=== PATIENT | female | born 1955 | race Caucasian/White ===

== ENCOUNTER 2016-10-23 06:13 | Inpatient (IN) | payer OTHER ==
[2016-10-17 12:08] VITALS: BMI 26.2
[2016-10-23] MEDS ORDERED: MIDAZOLAM HCL 2 MG/2 ML SINGLE DOSE VIAL ONE ×2 (06:48→10:57)
[2016-10-23] MEDS ORDERED: DEXAMETHASONE SOD PHOSPHATE/PF 10 MG/ML SDV ONE (06:48)
[2016-10-23] MEDS ORDERED: ROPIVACAINE HCL 0.5% 30ML VIAL ONE ×2 (06:48→07:11)
[2016-10-23] MEDS ORDERED: KETOROLAC TROMETHAMINE 60 MG/2 ML VIAL ONE (07:11)
[2016-10-23] MEDS ORDERED: morphine CARPU-JECT 10 MG/1 ML DISP.SYRIN ONE (07:11)
[2016-10-23] MEDS ORDERED: EPINEPHrine 1:1,000 1 MG/1 ML - 30ML VIAL (INJECTION) ONE (07:11)
[2016-10-23] MEDS ORDERED: TRANEXAMIC ACID 1000 MG/10 ML VIAL ONE ×3 (07:12→09:28)
[2016-10-23] MEDS ORDERED: BUPIVACAINE HCL/PF 0.5% (5MG/ML) 10 ML VIAL ONE (07:19)
[2016-10-23] MEDS ORDERED: oxyCODONE HCL 10 MG SUSTAINED ACTING TABLET ONE (07:21)
[2016-10-23] MEDS ORDERED: CELECOXIB 200 MG CAPSULE PO ONE (07:21)
[2016-10-23] MEDS ORDERED: PROPOFOL 20 ML ONE ×5 (07:27→11:08)
[2016-10-23] MEDS ORDERED: ePHEDrine SULFATE 50 MG/1 ML AMPULE ONE (07:27)
[2016-10-23] MEDS ORDERED: SUCCINYLCHOLINE CHLORIDE 200 MG/10 ML VIAL ONE (07:27)
[2016-10-23] MEDS ORDERED: PHENYLEPHRINE HCL 10 MG/1 ML SINGLE DOSE VIAL ONE (07:27)
[2016-10-23] MEDS ORDERED: ceFAZolin SODIUM 1 GM VIAL ONE ×2 (07:27→12:48)
[2016-10-23] MEDS ORDERED: LIDOCAINE HCL/PF 2% SDV 5ML VIAL ONE (07:27)
[2016-10-23] MEDS ORDERED: CEFAZOLIN 1 GM/D5W 50 ML IVPB ONE (07:38)
[2016-10-23] MEDS ORDERED: TRANEXAMIC ACID 1000 MG/10 ML VIAL IVPUSH ONE (07:38)
--- NOTE | 2016-10-23 07:43 | HP ---
History & Physical Update - History History: No Change - Physical Physical: No Change - Assessment Assessment: No Change - Plan Plan: No Change (full H&P in chart dated 10/18/2016)
[2016-10-23] MEDS ORDERED: LIDOCAINE HCL 1%, 10 MG/ML (20ML VIAL) ONE (08:21)
[2016-10-23] MEDS ORDERED: methylPREDNISolone ACET (DEPO) 40 MG/1 ML VIAL ONE (08:21)
[2016-10-23] MEDS ORDERED: ROCURONIUM BROMIDE 50 MG/5 ML VIAL ONE (11:07)
[2016-10-23] MEDS ORDERED: BUPIVACAINE HCL/EPINEPHRINE/PF 30 ML VIAL IJ ONE (11:14)
[2016-10-23] MEDS ORDERED: DESFLURANE GAS 240 ML BOTTLE IH ONE (11:22)
[2016-10-23] MEDS ORDERED: NEOSTIGMINE METHYLSULFATE 0.5 MG/ML - 10 ML MDV ONE (12:09)
--- NOTE | 2016-10-23 14:51 | OP ---
Operative Note - Note: Operative Date: 10/23/16 Pre-Operative Diagnosis: Bilateral Medial Compartment Knee Osteoarthritis Operation: Bilateral Medial Unicompartmental Arthroplasty. Open posterior exploration of the left knee for drill bit removal Findings: During the left knee procedure we noted that one of the drill bit was unaccounted for. An Xray was obtained. The drill bit was in the posterior soft tissues. The bit could not be located from anteriorly so we elected to complete the knee and flip the patient to perform an open posterior exploration. Vascular was notified and on standby. The bit was removed without complications, it was medial to the tibial nerve, and there was no evidence of a soft tissue hematoma at the time of exploration. After we finished the exploration I contacted the patients . He was made of aware of what had transpired. We reviewed whether or not he wanted me to proceed with the right knee. We determined that she was very keen on having both knees completed, and since her pulses were normal and there was no obvious vascular injury from the drill but that we should proceed with the right knee. Implants: [employer]. Left Knee: Size 3 Femur, Size 2 Tibia, 9 mm Poly. Right Knee: Size 3 Femur, Size 1 Tibia, 8 mm Poly Post-Operative Diagnosis: Same as Pre-op Surgeon: Nam De Souza Steelscope Operator: Destiny Leonard Anesthesiologist/WEB OFFSET PRESS FEEDER: Shane Zarate Anesthesia: General, Spinal Specimens Removed: Bone
[2016-10-23] MEDS ORDERED: MAG HYDROX/AL HYDROX/SIMETH 30 ML UNIT-DOSE CUP PO PRN (15:15)
[2016-10-23] MEDS ORDERED: LACTATED RINGERS SOLUTION 1,000 ML IV SCH (15:15)
[2016-10-23] MEDS ORDERED: ONDANSETRON 4 MG/2 ML VIAL ONE (15:19)
[2016-10-23] MEDS ORDERED: ACETAMINOPHEN 325 MG TABLET (FP) PO PRN (15:25)
[2016-10-23] MEDS ORDERED: ESTRADIOL TD SCH (15:30)
[2016-10-23] MEDS ORDERED: [UNRECOGNIZED DRUG - OTHER] TD SCH (15:30)
[2016-10-23] MEDS ORDERED: oxyCODONE HCL 5 MG TABLET PO PRN ×2 (16:25)
[2016-10-23] MEDS ORDERED: HYDROmorphone *PCA* 10MG/50ML DISP.SYRIN PCA SCH (17:45)
[2016-10-23] MEDS: CEFAZOLIN 1 GM/D5W 50 ML IVPB SCH (20:34)
--- NOTE | 2016-10-23 21:19 | CONSULT ---
Consultation: REQUESTING PROVIDER: Dr. Nam De Souza CONSULT REQUEST: We have been asked to medically evaluate this patient for ( medical Management). HISTORY OF PRESENT ILLNESS: This is a 61 y/o female with a PMHx of: Anxiety, Depression, Meningioma, Uterine Polyp, OA- Bilateral Knees, Chronic Pain. s/p Bilateral Unicompartmental Medial Knee Replacement, POD#0. Patient is AAOx3, reports bilateral knee pain PS 5/10, clogged bilateral ears. Patient reports some sensation to B/L feet. Patient denies fever, SOB, dizziness, CP, AP, N/V/D. PAST MEDICAL HISTORY: Anxiety Depression Meningioma Uterine Polyp OA- Bilateral Knees Chronic Pain PAST SURGICAL HISTORY: Craniotomy (meningioma) Uterine Polyps Vein Stripping Appendectomy Left Knee Arthroscopy SOCIAL HISTORY: Tobacco- Never Alcohol- Socially Drugs- None Lives with spouse FAMILY HISTORY: Non-Contributory HOME MEDICATIONS: 3 Medication Instructions Recorded Cholecalciferol (Vitamin D3) 1,000 unit PO Q2D 10/17/16 [Vitamin D3 -] Cyanocobalamin [Vitamin B12 -] 1 tab PO Q2D 10/17/16 Escitalopram Oxalate [Lexapro -] 20 mg PO DAILY 10/17/16 Estradiol/Levonorgestrel [Climara 1 each TD WEEKLY 10/17/16 Pro Patch] Callaway-3/Dha/Epa/Fish Oil [Callaway-3 1,200 mg PO DAILY 10/17/16 Fish Oil Softgel] ALLERGIES: 3 Allergy/AdvReac Type Severity Reaction Status Date / Time No Known Allergies Allergy Verified 10/17/16 12:08 REVIEW OF SYSTEMS: CONSTITUTIONAL: chills Absent: fever, diaphoresis, generalized weakness, malaise, loss of appetite, weight change HEENT: bilateral ear fullness Absent: rhinorrhea, nasal congestion, throat pain, throat swelling, difficulty swallowing, mouth swelling, ear pain, eye pain, visual changes CARDIOVASCULAR: Absent: chest pain, syncope, palpitations, irregular heart rate, lightheadedness , peripheral edema RESPIRATORY: Absent: cough, shortness of breath, dyspnea with exertion, orthopnea, wheezing, stridor, hemoptysis GASTROINTESTINAL: Absent: abdominal pain, abdominal distension, nausea, vomiting, diarrhea, constipation, melena, hematochezia GENITOURINARY: Absent: dysuria, frequency, urgency, hesitancy, hematuria, flank pain, genital pain MUSCULOSKELETAL: bilateral knee pain Absent: myalgia, arthralgia, joint swelling, back pain, neck pain SKIN: Absent: rash, itching, pallor HEMATOLOGIC/IMMUNOLOGIC: Absent: easy bleeding, easy bruising, lymphadenopathy, frequent infections ENDOCRINE: Absent: unexplained weight gain, unexplained weight loss, heat intolerance, cold intolerance NEUROLOGIC: paresthesias Absent: headache, focal weakness, dizziness, unsteady gait, seizure, mental status changes, bladder or bowel incontinence PSYCHIATRIC: Absent: anxiety, depression, suicidal or homicidal ideation, hallucinations. PHYSICAL EXAMINATION Vital Signs - 24 hr 10/23/16 10/23/16 10/23/16 07:07 15:12 15:17 Temperature 98.2 F 97.7 F Pulse Rate 58 L 71 74 Respiratory 18 15 18 Rate Blood Pressure 133/60 143/70 136/80 O2 Sat by Pulse 100 98 Oximetry (%) 10/23/16 10/23/16 10/23/16 15:22 15:27 15:42 Temperature Pulse Rate 71 71 77 Respiratory 14 11 L 10 L Rate Blood Pressure 136/74 133/67 122/56 O2 Sat by Pulse 99 95 99 Oximetry (%) 10/23/16 10/23/16 10/23/16 15:57 16:15 16:30 Temperature Pulse Rate 85 82 75 Respiratory 11 L 13 10 L Rate Blood Pressure 121/59 117/56 133/61 O2 Sat by Pulse 99 99 97 Oximetry (%) 10/23/16 10/23/16 16:45 17:28 Temperature 98.1 F Pulse Rate 64 71 Respiratory 12 18 Rate Blood Pressure 129/71 132/62 O2 Sat by Pulse 97 100 Oximetry (%) Laboratory Results - last 24 hr 10/23/16 10/23/16 10:43 10:44 Blood Type B POSITIVE B POSITIVE Antibody Screen Negative Crossmatch See Detail GENERAL: Awake, alert, and fully oriented, in no acute distress. HEAD: Normal with no signs of trauma. EYES: Pupils equal, round and reactive to light, extraocular movements intact, sclera anicteric, conjunctiva clear. No lid lag. EARS, NOSE, THROAT: Ears- unable to assess, nares patent, oropharynx clear without exudates. Moist mucous membranes. NECK: Normal range of motion, supple without lymphadenopathy, JVD, or masses. LUNGS: Breath sounds equal, clear to auscultation bilaterally. No wheezes, and no crackles. No accessory muscle use. HEART: Regular rate and rhythm, normal S1 and S2 without murmur, rub or gallop. ABDOMEN: Soft, nontender, not distended, normoactive bowel sounds, no guarding, no rebound, no masses. No hepatomegaly or splenomegaly. GENITOURINARY: Crane Catheter with yellow urine in drainage bag MUSCULOSKELETAL:+tenderness to bilateral knee. LROM of bilateral lower joints. Surgical dressings to bilateral knee, scant blood to R- Knee., +Icepacks. Normal range of motion of upper joints. No bony deformities or No CVA tenderness. UPPER EXTREMITIES: 2+ pulses, warm, well-perfused. No cyanosis. No clubbing. Cap refill <2 seconds. No peripheral edema. LOWER EXTREMITIES: 2+ pulses, warm, well-perfused. No calf tenderness. No peripheral edema. NEUROLOGICAL: Cranial nerves II-XII intact. Normal speech. Unable to assess gait. PSYCHIATRIC: Cooperative. Good eye contact. Appropriate mood and affect. SKIN: Warm, dry, normal turgor, no rashes or lesions noted. Laboratory Results - last 24 hr 10/23/16 10/23/16 10:43 10:44 Blood Type B POSITIVE B POSITIVE Antibody Screen Negative Crossmatch See Detail Active Medications Generic Name Dose Route Start Last Admin Trade Name Freq PRN Reason Stop Dose Admin Acetaminophen 650 mg 10/23/16 15:25 Tylenol - PO Q6H PRN FEVER OR PAIN Al Hydroxide/Mg Hydroxide 30 ml 10/23/16 15:15 Mylanta Oral Suspension - PO Q4H PRN DYSPEPSIA Aspirin 325 mg 10/24/16 10:00 Asa - PO BID JENNI Celecoxib 200 mg 10/23/16 22:00 Celebrex - PO BID JENNI Escitalopram Oxalate 20 mg 10/24/16 10:00 Lexapro - PO DAILY JENNI Hydromorphone HCl 10 mg 10/23/16 17:45 10/23/16 18:08 Dilaudid Bowling Alley Refinisher - BLACK AND WHITE PRINTER OPERATOR 10 mg BLACK AND WHITE PRINTER OPERATOR JENNI Administration Cefazolin Sodium 50 mls @ 100 mls/hr 10/23/16 21:00 10/23/16 20:34 Ancef 1 Gm Premixed Ivpb - IVPB 10/24/16 02:29 100 mls/hr Q8H-IV JENNI Administration Lactated Ringer's 1,000 mls @ 125 mls/hr 10/23/16 15:15 10/23/16 18:08 Lactated Ringers Solution IV 10/24/16 06:00 Not Given ASDIR JENNI Multivitamins/Minerals/Vitamin C 1 tab 10/24/16 10:00 Tab-A-Vit - PO DAILY JENNI Non-Formulary Medication 1 each 10/23/16 15:30 Estradiol/Levonorgestrel [Climara Pro Patch] TD WEEKLY JENNI Ondansetron HCl 4 mg 10/23/16 15:15 Zofran Injection IVPB Q6H PRN NAUSEA Pantoprazole Sodium 40 mg 10/24/16 10:00 Protonix - PO DAILY JENNI Senna/Docusate Sodium 1 tablet 10/23/16 22:00 Pericolace - PO BID JENNI ASSESSMENT/PLAN: This is a 61 y/o female s/p Bilateral Unicompartment medial knee replacement, POD #1 Plan: 1. Ortho- Continue Ortho Regimen 2. Depression- Continue Lexapro 3. Monitor CBC, BMP 4. PT 5. Incentive Spirometer 6. DVT/PPI Prophylaxis- SCDs, PPI Dispo: We will continue to follow the patient. Thank you for this consultative opportunity. Problem List - Problems (1) S/P bilateral unicompartmental knee replacement Code(s): Z96.653 - PRESENCE OF ARTIFICIAL KNEE JOINT, BILATERAL (2) Osteoarthritis Code(s): M19.90 - UNSPECIFIED OSTEOARTHRITIS, UNSPECIFIED SITE (3) Depression with anxiety Code(s): F41.8 - OTHER SPECIFIED ANXIETY DISORDERS (4) DVT prophylaxis Code(s): ISD7039 - Visit type - Emergency Visit Emergency Visit: No - New Patient This patient is new to me today: Yes Date on this admission: 10/23/16 - Critical Care Critical Care patient: No
[2016-10-23] MEDS ORDERED: CELECOXIB 200 MG CAPSULE PO SCH (22:00)
[2016-10-23] MEDS: SENNOSIDES/DOCUSATE COMBO (SENNA PLUS) TABLET (UD) PO SCH (22:15)
[2016-10-23] MEDS: ONDANSETRON 4 MG/2 ML VIAL IVPB PRN (22:15)
[2016-10-24] MEDS: CEFAZOLIN 1 GM/D5W 50 ML IVPB SCH (02:17)
[2016-10-24] MEDS: ONDANSETRON 4 MG/2 ML VIAL IVPB PRN (06:48)
[2016-10-24] MEDS ORDERED: oxyCODONE HCL 5 MG TABLET PO PRN (08:15)
[2016-10-24] MEDS: oxyCODONE HCL 10 MG SUSTAINED ACTING TABLET PO SCH ×2 (08:15→21:35)
--- NOTE | 2016-10-24 08:15 | PROC ---
Procedure Note Procedure: Had a long discussion with the patient and her about the events of yesterday --re: needing to remove the drill bit from the posterior popliteal space. She understands how it happened (saw vibration and migration). She understands that there was no evidence of muscles injury, hemorrhage, or hematoma. Her pulses are bounding. Both legs have no calf swelling or tenderness. Both legs have intact EHL, Tib ANt. We discussed the plan for today... pain control, nausea, and mobilization with PT. Her questions as well as her husbands questions were addressed.
[2016-10-24] MEDS ORDERED: ONDANSETRON *ODT* 4 MG TABLET SL PRN (08:17)
[2016-10-24] MEDS ORDERED: LORazepam 0.5 MG TABLET ONE (08:19)
--- NOTE | 2016-10-24 08:26 | PN ---
Physical Exam: SUBJECTIVE: Patient seen and examined, patient is crying reports feeling very anxious, reports nausea denies abdominal pain, reports pain to bilateral lower extremities upon ambulating. OBJECTIVE:This is a 61 y/o female with a PMHx of: Anxiety, Depression, Meningioma, Uterine Polyp, OA- Bilateral Knees, Chronic Pain. s/p Bilateral Unicompartmental Medial Knee Replacement, POD# 1(Perez), spinal anesthesia. Vital Signs Period Temp Pulse Resp BP Sys/Godoy Pulse Ox Last 24 Hr 97.7 F-98.1 F 59-85 10-18 114-143/56-80 95-100 GENERAL: The patient is awake, alert, and fully oriented, in no acute distress. HEAD: Normal with no signs of trauma. EYES: PERRL, extraocular movements intact, sclera anicteric, conjunctiva clear. No ptosis. ENT: Ears normal, nares patent, oropharynx clear without exudates, moist mucous membranes. NECK: Trachea midline, full range of motion, supple. LUNGS: Breath sounds equal, clear to auscultation bilaterally, no wheezes, no crackles, no accessory muscle use. HEART: Regular rate and rhythm, S1, S2 without murmur, rub or gallop. ABDOMEN: Soft, nontender, nondistended, normoactive bowel sounds, no guarding, no rebound, no hepatosplenomegaly, no masses. EXTREMITIES: 2+ pulses, warm, well-perfused, no edema. LEFT LOWER EXTREMITY: dressing CDI, ALVA/SCD less than 3 second capp refill RIGHT LOWER EXTREMITY: dressing CDI, ALVA/SCD less than 3 second capp refill NEUROLOGICAL: Cranial nerves II through XII grossly intact. Normal speech, gait not observed. PSYCH: Normal mood, normal affect. SKIN: Warm, dry, normal turgor, no rashes or lesions noted Laboratory Results - last 24 hr 10/23/16 10/23/16 10:43 10:44 Blood Type B POSITIVE B POSITIVE Antibody Screen Negative Crossmatch See Detail Active Medications Generic Name Dose Route Start Last Admin Trade Name Freq PRN Reason Stop Dose Admin Acetaminophen 650 mg 10/24/16 10:00 Tylenol - PO Q4HWA JENNI Al Hydroxide/Mg Hydroxide 30 ml 10/23/16 15:15 Mylanta Oral Suspension - PO Q4H PRN DYSPEPSIA Aspirin 325 mg 10/24/16 10:00 Asa - PO BID [facility] Celecoxib 200 mg 10/23/16 22:00 10/23/16 22:15 Celebrex - PO Not Given BID [facility] Dexamethasone Sodium Phosphate 4 mg 10/24/16 08:45 Decadron Injection - IVPUSH 10/24/16 08:46 ONCE ONE Escitalopram Oxalate 20 mg 10/24/16 10:00 Lexapro - PO DAILY [facility] Lorazepam 0.5 mg 10/24/16 08:30 Ativan - PO BID [facility] Multivitamins/Minerals/Vitamin C 1 tab 10/24/16 10:00 Tab-A-Vit - PO DAILY [facility] Non-Formulary Medication 1 each 10/23/16 15:30 Estradiol/Levonorgestrel [Climara Pro Patch] TD WEEKLY [facility] Ondansetron HCl 8 mg 10/24/16 08:17 Zofran Odt - SL Q6H PRN NAUSEA Oxycodone HCl 10 mg 10/24/16 08:15 Oxycontin - PO BID [facility] Oxycodone HCl 5 mg 10/24/16 08:15 Roxicodone - PO Q3H PRN MILD PAIN Oxycodone HCl 10 mg 10/24/16 08:15 Roxicodone - PO Q3H PRN MODERATE TO SEVERE PAIN Pantoprazole Sodium 40 mg 10/24/16 10:00 Protonix - PO DAILY [facility] Senna/Docusate Sodium 1 tablet 10/23/16 22:00 10/23/16 22:15 Pericolace - PO Not Given BID [facility] ASSESSMENT/PLAN: 1) ortho: s/p bilateral unicompartmental Medial Knee Replacement, POD #1 - continue PT as per orthopedist - pt reports 8/10 pain with dilaudid SUPERVISOR COREMAKER, anesthesia consulted (Tessa), dilaudid nursing admin dc'd, oxycodone 10mg q3h prn, oxycontin 10mg BID as per anesthesia - increase zofran 8mg q6h prn for nausea, decadron x 1 - encourage incentive spirometer 2) psych: depression/anxiety - continue home medication, lexapro daily - start ativan 0.5mg po bid prn f/e/n - regular diet - replete electrolytes ppx - protonix - asa - pt - scd/alva - oob thank you for this consultative opportunity will follow Visit type - Emergency Visit Emergency Visit: No - New Patient This patient is new to me today: Yes Date on this admission: 10/24/16 - Critical Care Critical Care patient: No - Discharge Referral Referred to [facility] Med P.C.: No
[2016-10-24] MEDS: LORazepam 0.5 MG TABLET PO SCH ×2 (08:30→21:34)
[2016-10-24] MEDS ORDERED: ONDANSETRON 4 MG/2 ML VIAL IVPUSH PRN (08:42)
[2016-10-24] MEDS ORDERED: DEXAMETHASONE SOD PHOSPHATE 4 MG/1 ML VIAL IVPUSH ONE (08:45)
[2016-10-24 08:57] LABS: ANION GAP 10 (8-16); CALCIUM 9.2 mg/dl (8.4-10.2); CO2 26 mmol/L (22-28); CREATININE 0.8 mg/dl (0.6-1.3); GLUCOSE,RANDOM 117 mg/dl (74-106)
[2016-10-24] MEDS: KETOROLAC TROMETHAMINE 30 MG/1 ML VIAL IVPUSH SCH ×3 (09:00→20:00)
[2016-10-24 09:13] LABS: COCKROFT - GAULT NT
[2016-10-24] MEDS: ACETAMINOPHEN 325 MG TABLET (FP) PO SCH ×4 (10:00→21:37)
[2016-10-24] MEDS: PANTOPRAZOLE 40 MG TABLET (FP) PO SCH (10:00)
[2016-10-24] MEDS: MULTIVITAMINS (DAILY MVI) TABLET (FP) PO SCH (10:00)
[2016-10-24] MEDS: ASPIRIN 325 MG TABLET PO SCH ×2 (10:00→21:34)
[2016-10-24] MEDS ORDERED: ESCITALOPRAM OXALATE 20 MG TABLET (FP) PO SCH (10:00)
[2016-10-24] MEDS: SENNOSIDES/DOCUSATE COMBO (SENNA PLUS) TABLET (UD) PO SCH ×2 (10:00→21:34)
--- NOTE | 2016-10-24 11:29 | PN ---
Progress Note, Physician Chief Complaint: s/p bilateral unicompartmental knee replacement under spinal anesthesia converted to general. - Current Medication List Current Medications: Active Medications Acetaminophen (Tylenol -) 650 mg PO Q4HWA [facility] Al Hydroxide/Mg Hydroxide (Mylanta Oral Suspension -) 30 ml PO Q4H PRN PRN Reason: DYSPEPSIA Aspirin (Asa -) 325 mg PO BID [facility] Escitalopram Oxalate (Lexapro -) 20 mg PO DAILY [facility] Ketorolac Tromethamine (Toradol Injection -) 30 mg IVPUSH Q6H-IV [facility] Stop: 10/26/16 08:59 Lorazepam (Ativan -) 0.5 mg PO BID [facility] Last Admin: 10/24/16 08:30 Dose: 0.5 mg Multivitamins/Minerals/Vitamin C (Tab-A-Vit -) 1 tab PO DAILY [facility] Non-Formulary Medication (Estradiol/Levonorgestrel [Climara Pro Patch]) 1 each TD WEEKLY [facility] Ondansetron HCl (Zofran Injection) 8 mg IVPUSH Q6H PRN PRN Reason: NAUSEA AND/OR VOMITING Oxycodone HCl (Oxycontin -) 10 mg PO BID [facility] Last Admin: 10/24/16 08:15 Dose: 10 mg Oxycodone HCl (Roxicodone -) 5 mg PO Q3H PRN PRN Reason: MILD PAIN Oxycodone HCl (Roxicodone -) 10 mg PO Q3H PRN PRN Reason: MODERATE TO SEVERE PAIN Pantoprazole Sodium (Protonix -) 40 mg PO DAILY [facility] Senna/Docusate Sodium (Pericolace -) 1 tablet PO BID [facility] Last Admin: 10/23/16 22:15 Dose: Not Given - Objective Vital Signs: Vital Signs Temperature 98.3 F 10/24/16 07:30 Pulse Rate 62 10/24/16 07:30 Respiratory Rate 18 10/24/16 07:30 Blood Pressure 148/61 10/24/16 07:30 O2 Sat by Pulse Oximetry (%) 100 10/24/16 06:21 Labs: CBC, BMP 10/24/16 07:42
[2016-10-24 12:11] LABS: MCH 29.8 pg (25.7-33.7); MEAN CELL VOLUME 87.6 fl (80-96); RDW 12.9 % (11.6-15.6)
[2016-10-24] MEDS: oxyCODONE HCL 5 MG TABLET PO PRN ×2 (17:25→21:34)
[2016-10-25] MEDS: oxyCODONE HCL 5 MG TABLET PO PRN ×2 (00:09→06:08)
[2016-10-25] MEDS: KETOROLAC TROMETHAMINE 30 MG/1 ML VIAL IVPUSH SCH ×2 (02:59→09:49)
[2016-10-25] MEDS: ACETAMINOPHEN 325 MG TABLET (FP) PO SCH ×2 (06:08→10:25)
[2016-10-25 06:29] VITALS: BP 133/62; PULSE 69; TEMP 98.5
--- NOTE | 2016-10-25 08:20 | PN ---
Physical Exam: SUBJECTIVE: Patient seen and examined, patient reports she took her own dose of lexapro from her home medication. She reports feeling well, denies any chest pain or shortness of breath. OBJECTIVE: patient is a 61 y/o female with a PMHx of: Anxiety, Depression, Meningioma, Uterine Polyp, OA- Bilateral Knees, Chronic Pain. s/p Bilateral Unicompartmental Medial Knee Replacement, POD# 2 (Perez), spinal anesthesia. Vital Signs Period Temp Pulse Resp BP Sys/Godoy Pulse Ox Last 24 Hr 98.5 F-98.7 F 62-69 18-18 101-133/43-62 95-97 GENERAL: The patient is awake, alert, and fully oriented, in no acute distress. HEAD: Normal with no signs of trauma. EYES: PERRL, extraocular movements intact, sclera anicteric, conjunctiva clear. No ptosis. ENT: Ears normal, nares patent, oropharynx clear without exudates, moist mucous membranes. NECK: Trachea midline, full range of motion, supple. LUNGS: Breath sounds equal, clear to auscultation bilaterally, no wheezes, no crackles, no accessory muscle use. HEART: Regular rate and rhythm, S1, S2 without murmur, rub or gallop. ABDOMEN: Soft, nontender, nondistended, normoactive bowel sounds, no guarding, no rebound, no hepatosplenomegaly, no masses. EXTREMITIES: 2+ pulses, warm, well-perfused, no edema. LEFT LOWER EXTREMITY: dressing CDI, SALIMA/SCD less than 3 second capp refill RIGHT LOWER EXTREMITY: dressing CDI, SALIMA/SCD less than 3 second capp refill NEUROLOGICAL: Cranial nerves II through XII grossly intact. Normal speech, gait not observed. PSYCH: Normal mood, normal affect. SKIN: Warm, dry, normal turgor, no rashes or lesions noted Laboratory Results - last 24 hr 10/24/16 10/24/16 10/24/16 07:42 07:42 12:26 WBC 22.0 H RBC 3.96 Hgb 11.8 Hct 34.7 MCV 87.6 MCHC 34.0 RDW 12.9 Plt Count MPV Plt Clumps, Citrate 174.0 Sodium 138 Potassium 4.3 Chloride 102 Carbon Dioxide 26 Anion Gap 10 BUN 16 Creatinine 0.8 Random Glucose 117 H Calcium 9.2 Active Medications Generic Name Dose Route Start Last Admin Trade Name Freq PRN Reason Stop Dose Admin Acetaminophen 650 mg 10/24/16 10:00 10/25/16 06:08 Tylenol - PO 650 mg Q4HWA JENNI Administration Al Hydroxide/Mg Hydroxide 30 ml 10/23/16 15:15 Mylanta Oral Suspension - PO Q4H PRN DYSPEPSIA Aspirin 325 mg 10/24/16 10:00 10/24/16 21:34 Asa - PO 325 mg BID JENNI Administration Ketorolac Tromethamine 30 mg 10/24/16 09:00 10/25/16 02:59 Toradol Injection - IVPUSH 10/26/16 08:59 30 mg Q6H-IV JENNI Administration Lorazepam 0.5 mg 10/24/16 08:30 10/24/16 21:34 Ativan - PO 0.5 mg BID JENNI Administration Multivitamins/Minerals/Vitamin C 1 tab 10/24/16 10:00 10/24/16 10:00 Tab-A-Vit - PO 1 tab DAILY JENNI Administration Non-Formulary Medication 1 each 10/23/16 15:30 Estradiol/Levonorgestrel [Climara Pro Patch] TD WEEKLY JENNI Ondansetron HCl 8 mg 10/24/16 08:42 Zofran Injection IVPUSH Q6H PRN NAUSEA AND/OR VOMITING Oxycodone HCl 10 mg 10/24/16 08:15 10/24/16 21:35 Oxycontin - PO 10 mg BID JENNI Administration Oxycodone HCl 5 mg 10/24/16 08:15 Roxicodone - PO Q3H PRN MILD PAIN Oxycodone HCl 10 mg 10/24/16 08:15 10/25/16 06:08 Roxicodone - PO 10 mg Q3H PRN Administration MODERATE TO SEVERE PAIN Pantoprazole Sodium 40 mg 10/24/16 10:00 10/24/16 10:00 Protonix - PO 40 mg DAILY JENNI Administration Senna/Docusate Sodium 1 tablet 10/23/16 22:00 10/24/16 21:34 Pericolace - PO 1 tablet BID JENNI Administration ASSESSMENT/PLAN: 1) ortho: s/p bilateral unicompartmental Medial Knee Replacement, POD # 2 - continue PT as per orthopedist - reports improvement of pain relief after taking prn roxicodone - encourage incentive spirometer 2) psych: depression/anxiety - continue home medication, lexapro daily - continue ativan 0.5mg po bid prn f/e/n - regular diet - replete electrolytes ppx - protonix - asa - pt - scd/salima - oob thank you for this consultative opportunity will follow
[2016-10-25 09:21] LABS: MCH 28.8 pg (25.7-33.7); MEAN PLT VOLUME 8.8 fl (7.5-11.1); PLATELET COUNT 137 K/MM3 (134-434); RDW 13.2 % (11.6-15.6); WHITE BLOOD COUNT 11.2 K/mm3 (4.0-10.8)
--- NOTE | 2016-10-25 09:30 | PN ---
Progress Note (short form) - Note Progress Note: PT seen and examined this am. Her nausea has resolved and she tolerated a diet, passing flatus. Yesterday she was oob with PT and ambulated with a walker. Her pain was better controlled with the oral pain plan. Her home medications were at her bedside this am and I asked if she had taken them yesterday. She said that she took her lexapro but not the vitamins. I explained to her that her home meds may be taken only if approved by the pharmacy which she didn't agree to. Vital Signs Period Temp Pulse Resp BP Sys/Godoy Pulse Ox Last 24 Hr 98.5 F-98.7 F 62-69 18-18 101-133/43-62 95-97 PE: GEN: A&0x3, NAD CV: RRR Lungs: CTA b/l ABD: soft, non-distended, non-tender. LE: no calf swelling or tenderness b/l. Aqaucel dressing remain intact and dry. Left posterior thigh dressing dry and intact. Celso stocking to mid thigh b/l. 5/ 5 dorsi/plantar/EHL. +2 DP/PT b/l with warm feet to touch. CBC, BMP 10/25/16 07:35 A/P: 61 yo female POD#2, s/p Bilateral Medial Unicompartmental Arthroplasty. Doing well surgically oob and ambulating with a walker. Will plan for discharge today later this afternoon D/w Dr. De Souza, discharge medications and orders completed Pt took her own lexapro dose and received an additional 20mg from the hospital on 10/24. I reviewed the medication dose instruction and half life with the pharmacy. She typically take her lexapro dose in the am. She will hold her dose today and I discontinued this medication for her today while in the hospital. She will resume her normal dose tomorrow at home.
[2016-10-25] MEDS: ASPIRIN 325 MG TABLET PO SCH (09:48)
[2016-10-25] MEDS: oxyCODONE HCL 10 MG SUSTAINED ACTING TABLET PO SCH (09:49)
[2016-10-25] MEDS: PANTOPRAZOLE 40 MG TABLET (FP) PO SCH (09:49)
[2016-10-25] MEDS: MULTIVITAMINS (DAILY MVI) TABLET (FP) PO SCH (09:49)
[2016-10-25] MEDS: LORazepam 0.5 MG TABLET PO SCH (09:49)
[2016-10-25] MEDS: SENNOSIDES/DOCUSATE COMBO (SENNA PLUS) TABLET (UD) PO SCH (09:49)
--- NOTE | 2016-11-01 11:18 | PATH ---
Surgical Pathology Report Patient Name: LANA LEGER I. [facility]. Rec. #: [id number] /Age/Gender: 1955 (Age: 61) / F Account: [id number] Location: [facility] MED-SURG Taken: 10/23/2016 Received: 10/23/2016 Reported: 10/26/2016 Physicians: Nam De Souza M.D. Specimen(s) Received A: BONE LEFT KNEE B: BONE RIGHT KNEE Clinical History Bilateral medial osteoarthritis Final Diagnosis A. BONE, LEFT KNEE, TOTAL KNEE REPLACEMENT: DEGENERATIVE JOINT DISEASE. B. BONE, RIGHT KNEE, TOTAL KNEE REPLACEMENT: DEGENERATIVE JOINT DISEASE. Electronically Signed Kim Gaines M.D. Gross Description A. Received in formalin labeled "bone left knee," are 4 sepulveda, irregular portions of bone measuring 6.2 x 4.4 x 0.5 cm in aggregate. There is no soft tissue present. The articular surfaces are sepulveda and focally granular. There are no areas of eburnation present. The underlying trabecular bone is yellow and hard. Hitcher sections are submitted in one cassette, following decalcification. B. Received in formalin labeled "bone right knee," are 3 sepulveda, irregular portions of bone measuring 6.0 x 4.6 x 0.7 cm in aggregate. There is no soft tissue present. There is a 1.4 cm in greatest dimension area of eburnation present. The remaining articular surfaces are sepulveda-yellow and focally granular. The underlying trabecular bone is yellow and hard. A safety representative section is submitted in one cassette, following decalcification. 10/24/2016 [facility]/24/2016
== END 2016-10-25 01:00 | disposition home health service (06) | DRG 462 ==
LOC: FM/S 06:13
PROVIDERS: ADMIT Orthopaedic Surgery; ATTEND Orthopaedic Surgery
PROC: 0SRD0J9 Replacement of Left Knee Joint with Synthetic Substitute, Cemented, Open Approach (ICD-10-PCS; principal; 2016-10-23 09:08)
PROC: 0SRC0J9 Replacement of Right Knee Joint with Synthetic Substitute, Cemented, Open Approach (ICD-10-PCS; 2016-10-23 09:08)
DX: M17.0 Bilateral primary osteoarthritis of knee (principal); F32.9 Major depressive disorder, single episode, unspecified; F41.9 Anxiety disorder, unspecified
CPT/HCPCS: 36415; 73560-TC-LT; 73560-TC-RT; 80048; 85027; 85032; 86850; 86900; 86901; 86922; 88304-TC; 88311-TC; 94010; 94760; 97116-GP; 97162-PG